=== PATIENT | female | born 1945 | race Caucasian/White ===

== ENCOUNTER 2018-07-14 10:01 | Emergency (ER) | payer MEDICARE, OTHER ==
[~2018-07-14] VITALS: Ht 160 cm; Wt 86.2 kg
[2018-07-14] MEDS ORDERED: TETANUS,DIPTH,PERTUSS P/F (BOOSTRIX) 0.5 ML VIAL IM STA (10:11)
--- NOTE | 2018-07-14 10:14 | ED Fall/Injury ---
General Chief Complaint: Trauma-Non Activation Stated Complaint: FALL Source: patient Exam Limitations: no limitations History of Present Illness Date Seen by Provider: Jul 14, 2018 Time Seen by Provider: 10:03 Initial Comments Here by EMS with report of fall at the dentist office today. Apparently she may have been walking upper ramp when she lost her balance and fell backward. This was unwitnessed. Was noted right after the fall. No loss of consciousness. Does have abrasion to the right posterior aspect of the head. Did complain of some low back pain and neck pain. Does have Alzheimer's disease and is in memory care facility. No nausea or vomiting. Occurred: just prior to arrival Severity: mild, moderate Injuries/Pain Location: head, neck, back Context: unknown Loss of Consciousness: no loss of consciousness Modifying Factors: Worse With Movement; Improves With Rest Associated Symptoms (Fall): Confusion (may be baseline), Headache, Neck Pain Allergies and Home Medications Allergies Coded Allergies: No Allergy Information Available (Unverified , 07/14/18) Patient Home Medication List Home Medication List Reviewed: Yes Review of Systems Review of Systems Constitutional: see HPI; No chills, No fever Eyes: No Symptoms Reported Ears, Nose, Mouth, Throat: no symptoms reported Respiratory: no symptoms reported Cardiovascular: no symptoms reported Gastrointestinal: No nausea, No vomiting Genitourinary: no symptoms reported Musculoskeletal: see HPI, back pain, muscle pain, muscle stiffness, neck pain Skin: see HPI, lesions (abrasion right posterior scalp) Psychiatric/Neurological: See HPI All Other Systems Reviewed Negative Unless Noted: Yes Past Yubcnec-Rrmawx-Avnxdh Hx Past Med/Social Hx: Reviewed Nursing Past Med/Soc Hx Patient Social History Alcohol Use: Denies Use Recreational Drug Use: No Smoking Status: Never a Smoker Past Medical History Surgeries: Yes Section, Gallbladder Cardiac: No Neurological: Yes Dementia Musculoskeletal: Yes Rheumatoid Arthritis Family Medical History Reviewed Nursing Family Hx Physical Exam Vital Signs Vital Signs - First Documented 07/14/18 10:13 Temp 97.0 Pulse 81 Resp 20 B/P (MAP) 123/56 (78) Pulse Ox 94 O2 Delivery Room Air Capillary Refill : Height, Weight, BMI Height: '" Weight: lbs. oz. kg; BMI Method: General Appearance: WD/WN, no apparent distress HEENT: PERRL/EOMI, TMs normal, pharynx normal Neck: supple, tender lateral, tender midline (mid C-spine to head) Cardiovascular: regular rate, rhythm, no murmur Respiratory: lungs clear, normal breath sounds Peripheral Pulses: 2+ Dorsalis Pedis (R), 2+ Left Dors-Pedis (L), 2+ Radial Pulses (R), 2+ Radial Pulses (L) Gastrointestinal: non tender, soft Back: normal inspection, no CVA tenderness; No muscle spasm; vertebral tenderness (low lumbar area) Extremities: non-tender, normal inspection Neurologic/Psychiatric: alert, oriented x 3 Skin: warm/dry, other (small abrasion to the right posterior aspect) [place] Coma Score Best Eye Response: (4) Open Spontaneously Best Verbal Response: (5) Oriented Best Motor Response: (6) Obeys Commands Progress/Results/Core Measures Results/Orders My Orders Orders - BHUMIKA MARIE MD Ct Head/Cervical Spine Wo (07/14/18 10:11) Dipht,Pertuss(Acell),Tet Adult (Boostrix (07/14/18 10:11) Ct Lumbar Spine Wo (07/14/18 10:14) Pelvis (07/14/18 10:14) Vital Signs/I&O 07/14/18 07/14/18 10:13 10:26 Temp 97.0 97.0 Pulse 81 81 Resp 20 20 B/P (MAP) 123/56 (78) 123/56 (78) Pulse Ox 94 94 O2 Delivery Room Air Progress Progress Note : Progress Note Seen and evaluated. CT head and neck ordered. CT lumbar spine ordered. We will get x-ray of the pelvis as well. Bleeding is controlled without intervention. Wound cleaned. Monitor patient. 1155: Patient is feeling much better. No acute findings. Discharged home with . Family verbalize understanding instructions and agreement with plan. Diagnostic Imaging Diagonstic Imaging: CT Comments VIA [facility]. [place], [place] NAME: MIKEARNOL Sushil [facility] REC#: [id number] PT STATUS: REG ER : 1945 PHYSICIAN: BHUMIKA MARIE MD ADMIT DATE: 07/14/18/ER Draft Date of Exam:07/14/18 CT HEAD/CERVICAL SPINE WO PROCEDURE: CT head and CT cervical spine without contrast. TECHNIQUE: Multiple contiguous axial images were obtained through the brain and cervical spine without the use of intravenous contrast. Sagittal and coronal reformations through the cervical spine were then performed. INDICATION: Trauma. Fall. COMPARISON: None FINDINGS: CT head: The ventricles and cortical sulci are diffusely prominent, compatible with age-related volume loss. There are confluent areas of abnormal, low attenuation in the periventricular white matter. This is consistent with small vessel ischemic changes; age-indeterminate. There is no prior study available for comparison. There is no midline shift or mass-effect. No acute intra-axial hemorrhage is seen. There are no abnormal areas of increased or decreased density to suggest acute hemorrhage or edema. No extra-axial masses or collections are present. Subgaleal hematoma is identified posterior laterally on the right. The underlying bony calvarium is intact. The visualized paranasal sinuses are unremarkable. The mastoid air cells are clear. CT cervical spine: Evaluation of the static alignment demonstrates slight grade 1 retrolisthesis at the C5-C6 level. There is no evidence of jumped facets. Static alignment is otherwise maintained. Vertebral body heights are preserved. There is no evidence of acute fracture. No bony fragments are seen within the spinal canal. There are mild multilevel degenerative changes, greatest at the C5-C6 level as well where there is intervertebral disc height loss with anterior and posterior disc osteophyte complex formations. Note is also made of diffuse heterogeneous appearance to the marrow. Multiple small focal lucencies are seen scattered throughout. Findings could be on the basis of advanced osteoporosis, although miliary metastatic disease may have a similar appearance. Pre-and paravertebral soft tissue structures are unremarkable. Included portions of the lung apices are clear. IMPRESSION: 1. No acute intracranial abnormality. No CT evidence of mass, acute infarct or intracranial hemorrhage. 2. Small vessel ischemic changes in the periventricular and subcortical white matter; likely chronic. 3. No CT evidence of acute fracture or dislocation of the cervical spine. 4. Degenerative changes of the cervical spine, greatest at C5-C6 level. 5. Heterogeneous appearance to the marrow. Again, findings could be on the basis of advanced osteoporosis, although no miliary metastatic disease may have a similar appearance. Correlation with pre-and postcontrast MRI may be of benefit for further evaluation. Dictated on workstation # [id number] Dict: 07/14/18 1057 Trans: 07/14/18 1109 [facility] [id number] Interpreted by: EDGAR SANTA MD Electronically signed by: Diagonstic Imaging: CT [facility] [place] [place] NAME: ARNOL MCKEON [facility] REC#: [id number] PT STATUS: REG ER : 1945 PHYSICIAN: BHUMIKA MARIE MD ADMIT DATE: 07/14/18/ER Draft Date of Exam:07/14/18 CT LUMBAR SPINE WO PROCEDURE: CT lumbar spine without contrast. TECHNIQUE: Multiple contiguous axial images were obtained through the lumbar spine without the use of intravenous contrast. Sagittal and coronal reformations were then performed. INDICATION: Trauma. Severe low back pain. COMPARISON: None. FINDINGS: There are 5 lumbar type vertebral bodies. Minimal anterolisthesis of L4 on L5. Alignment is otherwise unremarkable. Vertebral body heights preserved. No fractures. Moderate diffuse degenerative endplate changes and advanced facet arthropathy. No high-grade spinal canal or neural foraminal narrowing is evident on this noncontrast exam. Moderate degenerative changes in the visualized sacroiliac joints. Moderate atherosclerotic calcifications including a normal caliber abdominal aorta. No acute CT findings in the visualized abdomen or pelvis. IMPRESSION: 1. No acute CT findings in the lumbar spine. 2. Moderate to advanced spondylotic changes result in no high-grade neural impingement on this non-intrathecal contrast exam. 3. Moderate degenerative changes in the sacroiliac joints. Dictated on workstation # [id number] Dict: 07/14/18 1107 Trans: 07/14/18 1117 [facility] [id number] Interpreted by: HEIDI MOCTEZUMA MD Electronically signed by: Carolanstic Imaging: Xray Plain Films/CT/US/NM/MRI: pelvis Comments [facility] [place], [place] NAME: ARNOL MCKEON [facility] REC#: [id number] PT STATUS: REG ER : 1945 PHYSICIAN: BHUMIKA MARIE MD ADMIT DATE: 07/14/18/ER Draft Date of Exam:07/14/18 PELVIS INDICATION: Pain after fall. COMPARISON: CT lumbar spine performed concurrently. TECHNIQUE: AP view of the pelvis. FINDINGS: No diastasis of the SI joints or symphysis pubis. Hips are normal in alignment. No acute fracture is identified. Mild degenerative changes in the lower lumbar spine and SI joints are noted. IMPRESSION: No displaced fracture or traumatic malalignment in the pelvis by radiography. Dictated on workstation # [id number] Dict: 07/14/18 1138 Trans: 07/14/18 1152 [facility] [id number] Interpreted by: MEL ORTIZ MD Electronically signed by: Departure Impression Primary Impression: Head injury Qualified Codes: S09.90XA - Unspecified injury of head, initial encounter Additional Impression: Abrasion, scalp w/o infection Disposition: HOME, SELF-CARE Condition: Stable Departure-Patient Inst. Decision time for Depature: 12:02 Referrals: PAVEL PARKS MD (PCP) Primary Care Physician Patient Instructions: Skin Abrasions (DC), Concussion, Adult (DC), Minor Head Injury (DC) Add. Discharge Instructions: All discharge instructions reviewed with patient and/or family. Voiced understanding. You may use antibiotic ointment over abrasion on scalp twice daily as needed for the next several days. It is okay to wash hair but do not scrub vigorously over wound. Pat wound dry. You may take Tylenol/acetaminophen 1000 mg every 6- 8 hours as needed for pain. Follow-up with your DrMuna in a few days for recheck. Return for worse pain, weakness, vision or balance problems, vomiting 3 times in 12 hours or other concerns as needed. BHUMIKA MARIE MD Jul 14, 2018 10:14
--- OUTSIDE RECORDS SUMMARY | 2018-07-14 10:23 | XMS REPORT ---
Author Author [facility] Medical Staff Organization [facility] Address [address] [place], [place] [address] Phone [phone] Summary purpose CCDA Sent to [facility] Chief Complaint and Reason for Visit No authorized Reason for Visit (Admitting Diagnosis) is available for this visit. Problem list No authorized problems tracked for continuity of care are available for this visit. Encounters No authorized problems tracked for encounter diagnoses are available for this visit. Medications No medications recorded for this patient visit Allergies, adverse reactions, alerts No allergy information is available for this patient. Immunizations No immunizations recorded for this patient visit Relevant diagnostic tests and/or laboratory data No authorized results are available for this patient visit History of procedures Procedure Code Code Type Description Date Performed Performing Physician 97180 CPT-4 ELECTROCARDIOGRAM REPORT 01-03-2017 SAAD SAWYER Functional status No functional or cognitive status observations are available for this visit. Vital signs No authorized vital signs are available for this visit. Social history No Social History or smoking status observations were recorded for this visit. ( Unknown if ever smoked.) Treatment Plan No treatment plan text is available for this visit. Hospital discharge instructions No discharge instruction text is available for this visit.
--- OUTSIDE RECORDS SUMMARY | 2018-07-14 10:23 | XMS REPORT | Continuity of Care Document ---
Author Author [facility] Organization [facility] Address Unknown Phone Unavailable Allergies There is no data. Medications There is no data. Problems Date Dx Coded Attending Type Code Diagnosis Diagnosed By 01/10/2017 MANSOOR HUFF MD E03.9 Hypothyroidism, unspecified 01/10/2017 MANSOOR HUFF MD E11.9 Type 2 diabetes mellitus without complications 01/10/2017 MANSOOR HUFF MD F01.51 Vascular dementia with behavioral disturbance 01/10/2017 MANSOOR HUFF MD F22 Delusional disorders 01/10/2017 MANSOOR HUFF MD F25.0 Schizoaffective disorder, bipolar type 01/10/2017 MANSOOR HUFF MD F32.9 Major depressive disorder, single episode, unspecified 01/10/2017 MANSOOR HUFF MD J30.9 Allergic rhinitis, unspecified 01/10/2017 MANSOOR HUFF MD K21.9 Gastro-esophageal reflux disease without esophagitis Procedures There is no data. Results There is no data. Encounters ACCT No. Visit Date/Time Discharge Status Pt. Type Provider Facility Loc./Unit Complaint [id number] 01/03/2017 18:00:00 01/10/2017 10:30:00 DIS Inpatient MANSOOR HUFF MD [facility] [id number] 07/02/2016 15:52:00 07/02/2016 23:59:59 CLS Outpatient Pam Kee
--- OUTSIDE RECORDS SUMMARY | 2018-07-14 10:23 | XMS REPORT ---
Author Author [facility] Medical Staff Organization [facility] Address [address] [place], [place] [address] Phone [phone] Summary purpose CCDA Sent to [facility] Chief Complaint and Reason for Visit Admit Diagnosis 1 paranoia, delusions Problem list No authorized problems tracked for [...] for this patient visit History of procedures No procedures recorded for this patient visit. Functional status No functional or cognitive status [...]
--- OUTSIDE RECORDS SUMMARY | 2018-07-14 10:23 | XMS REPORT ---
Author Author [facility] Medical Staff Organization [facility] Address [address] [place], [place] [address] Phone [phone] Summary purpose CCDA Sent to [facility] Chief Complaint and Reason for Visit No [...] Code Type Description Date Performed Performing Physician [id number] CPT-4 ELECTROCARDIOGRAM REPORT 01-07-2017 SAAD SAWYER Functional status No functional or [...]
[2018-07-14] MEDS ORDERED: PANT40TA3 (10:32)
[2018-07-14] MEDS ORDERED: RIVA6CAP5 (10:32)
[2018-07-14] MEDS ORDERED: DIVA-74 (10:32)
[2018-07-14] MEDS ORDERED: DULO30CA48 (10:32)
[2018-07-14] MEDS ORDERED: MELO15TA39 (10:32)
[2018-07-14] MEDS ORDERED: SULF500T7 (10:32)
[2018-07-14] MEDS ORDERED: PIOG15TA67 (10:32)
[2018-07-14] MEDS ORDERED: RAMI2.5C2 (10:32)
[2018-07-14] MEDS ORDERED: METF-397 (10:32)
[2018-07-14] MEDS ORDERED: LEVO75TA6 (10:32)
[2018-07-14] MEDS ORDERED: CLON0.5T13 (10:32)
--- NOTE | 2018-07-14 11:10 | Diagnostic Imaging Report ---
PROCEDURE: CT head and CT cervical spine without contrast. TECHNIQUE: Multiple contiguous axial images were obtained through the brain and cervical spine without the use of intravenous contrast. Sagittal and coronal reformations through the cervical spine were then performed. INDICATION: Trauma. Fall. COMPARISON: None FINDINGS: CT head: The ventricles and cortical sulci are diffusely prominent, compatible with age-related volume loss. There are confluent areas of abnormal, low attenuation in the periventricular white matter. This is consistent with small vessel ischemic changes; age-indeterminate. There is no prior study available for comparison. There is no midline shift or mass-effect. No acute intra-axial hemorrhage is seen. There are no abnormal areas of increased or decreased density to suggest acute hemorrhage or edema. No extra-axial masses or collections are present. Subgaleal hematoma is identified posterior laterally on the right. The underlying bony calvarium is intact. The visualized paranasal sinuses are unremarkable. The mastoid air cells are clear. CT cervical spine: Evaluation of the static alignment demonstrates slight grade 1 retrolisthesis at the C5-C6 level. There is no evidence of jumped facets. Static alignment is otherwise maintained. Vertebral body heights are preserved. There is no evidence of acute fracture. No bony fragments are seen within the spinal canal. There are mild multilevel degenerative changes, greatest at the C5-C6 level as well where there is intervertebral disc height loss with anterior and posterior disc osteophyte complex formations. Note is also made of diffuse heterogeneous appearance to the marrow. Multiple small focal lucencies are seen scattered throughout. Findings could be on the basis of advanced osteoporosis, although miliary metastatic disease may have a similar appearance. Pre-and paravertebral soft tissue structures are unremarkable. Included portions of the lung apices are clear. IMPRESSION: 1. No acute intracranial abnormality. No CT evidence of mass, acute infarct or intracranial hemorrhage. 2. Small vessel ischemic changes in the periventricular and subcortical white matter; likely chronic. 3. No CT evidence of acute fracture or dislocation of the cervical spine. 4. Degenerative changes of the cervical spine, greatest at C5-C6 level. 5. Heterogeneous appearance to the marrow. Again, findings could be on the basis of advanced osteoporosis, although no miliary metastatic disease may have a similar appearance. Correlation with pre-and postcontrast MRI may be of benefit for further evaluation. Dictated by: Dictated on workstation # [id number]
--- NOTE | 2018-07-14 11:17 | Diagnostic Imaging Report ---
PROCEDURE: CT lumbar spine without contrast. TECHNIQUE: Multiple contiguous axial images were obtained through the lumbar spine without the use of intravenous contrast. Sagittal and coronal reformations were then performed. INDICATION: Trauma. Severe low back pain. COMPARISON: None. FINDINGS: There are 5 lumbar type vertebral bodies. Minimal anterolisthesis of L4 on L5. Alignment is otherwise unremarkable. Vertebral body heights preserved. No fractures. Moderate diffuse degenerative endplate changes and advanced facet arthropathy. No high-grade spinal canal or neural foraminal narrowing is evident on this noncontrast exam. Moderate degenerative changes in the visualized sacroiliac joints. Moderate atherosclerotic calcifications including a normal caliber abdominal aorta. No acute CT findings in the visualized abdomen or pelvis. IMPRESSION: 1. No acute CT findings in the lumbar spine. 2. Moderate to advanced spondylotic changes result in no high-grade neural impingement on this non-intrathecal contrast exam. 3. Moderate degenerative changes in the sacroiliac joints. Dictated by: Dictated on workstation # [id number]
--- NOTE | 2018-07-14 11:52 | Diagnostic Imaging Report ---
INDICATION: Pain after fall. COMPARISON: CT lumbar spine performed concurrently. TECHNIQUE: AP view of the pelvis. FINDINGS: No diastasis of the SI joints or symphysis pubis. Hips are normal in alignment. No acute fracture is identified. Mild degenerative changes in the lower lumbar spine and SI joints are noted. IMPRESSION: No displaced fracture or traumatic malalignment in the pelvis by radiography. Dictated by: Dictated on workstation # [id number]
[2018-07-14 12:20] VITALS: BP 124/78
== END 2018-07-14 12:20 | disposition home or self-care (01) ==
LOC: EDUNIT# 10:01 → ER 10:02
DX: S09.90XA Unspecified injury of head, initial encounter (principal); S00.01XA Abrasion of scalp, initial encounter; G30.9 Alzheimer's disease, unspecified; M06.9 Rheumatoid arthritis, unspecified; M54.5 Low back pain; R40.2142 Coma scale, eyes open, spontaneous, at arrival to emergency department; R40.2252 Coma scale, best verbal response, oriented, at arrival to emergency department; R40.2362 Coma scale, best motor response, obeys commands, at arrival to emergency department; F03.90 Unspecified dementia, unspecified severity, without behavioral disturbance, psychotic disturbance, mood disturbance, and anxiety; Z23 Encounter for immunization; Z98.890 Other specified postprocedural states; W18.39XA Other fall on same level, initial encounter
CPT/HCPCS: 70450; 72125; 72131; 72170; 90715